=== PATIENT | female | born 1965 | race Caucasian/White ===

== ENCOUNTER → 2018-05-15 | Outpatient (CLI) | payer SELFPAY ==
--- NOTE | 2018-05-15 17:08 | RAD ---
Right elbow, 3 views, 05/15/2018: HISTORY: Fall, elbow pain No recent fracture or dislocation is identified. There is no radiographic evidence of a elbow joint effusion. A well-defined sclerotic focus is identified in the distal humerus involving the cortex. No bone destruction or periosteal reaction is evident. This has a benign appearance and is probably an old healed fibrous cortical defect. IMPRESSION: No acute right elbow abnormality is detected. Electronically signed by: Jorge Hassan MD (05/15/2018 5:06 PM) [facility]
== END | disposition home or self-care (01) ==
LOC: RAD 15:51
PROVIDERS: ATTEND Family Medicine
DX: S59.901D Unspecified injury of right elbow, subsequent encounter (principal); W19.XXXD Unspecified fall, subsequent encounter
CPT/HCPCS: 73080